=== PATIENT | female | born 1970 | race Caucasian/White ===

== ENCOUNTER 2018-01-05 11:43 | Outpatient (CLI) | payer OTHER | END 2018-01-05 11:44 | disposition EMS.NT | LOC: EMS 11:43 | PROVIDERS: ATTEND Surgery | DX: R07.81 Pleurodynia (principal); R42 Dizziness and giddiness ==

== ENCOUNTER 2018-01-05 12:38 | Emergency (ER) | payer OTHER ==
--- NOTE | 2018-01-05 13:24 | XRAY Preliminary Report ---
Exam: XR RIBS W/PA CHEST LT IMPRESSION: Normal chest and rib radiography. [facility] SITE ID: [id number]
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
[2018-01-05 14:41] VITALS: BP 112/78
== END 2018-01-05 14:40 | disposition home or self-care (01) ==
LOC: ED 12:38
DX: S20.219A Contusion of unspecified front wall of thorax, initial encounter (principal); X50.9XXA Other and unspecified overexertion or strenuous movements or postures, initial encounter
CPT/HCPCS: 99283